=== PATIENT | male | born 1940 | race Caucasian/White ===

== ENCOUNTER 2016-07-02 10:29 | Emergency (ER) | payer MEDICARE, OTHER | END 2016-07-02 13:30 | disposition home or self-care (01) | LOC: D.ER 10:29 | DX: G62.9 Polyneuropathy, unspecified (principal); M48.32 Traumatic spondylopathy, cervical region ==

== ENCOUNTER 2016-12-03 10:59 | Emergency (ER) | payer MEDICARE, OTHER ==
[2016-12-03 11:45] LABS: BASOPHILS 0.3 % (0-2); EOSINOPHILS 2.3 % (0-7); HEMATOCRIT 37.3 % (42.0-54.0); HEMOGLOBIN 12.2 g/dL (13.5-17.5); IMMATURE GRANULOCYTES 0.2 % (0-5); LYMPHOCYTES 19.3 % (15-50); MCH 31.5 pg (26.0-34.0); MCHC 32.7 g/dL (31.0-37.0); MCV 96.4 fL (80.0-100.0); MEAN PLATELET VOLUME 9.9 fL (7.4-10.4); MONOCYTES 9.4 % (2-11); NEUTROPHILS 68.5 % (40-80); PLATELET COUNT 186 10x3/uL (130-400); RBC 3.87 10x6/uL (4.20-6.10); RDW 12.8 % (11.5-14.5); WBC 9.1 10x3/uL (4.8-10.8)
[2016-12-03 11:54] LABS: ALBUMIN 3.5 g/dL (3.4-5.0); ANION GAP 12.5 mmol/L (8-16); BILIRUBIN - TOTAL 0.27 mg/dL (0.2-1.3); CALCIUM 8.6 mg/dL (8.5-10.1); CARBON DIOXIDE 27.4 mmol/L (21.0-32.0); CREATININE - SERUM 1.4 mg/dL (0.6-1.3); POTASSIUM - SERUM 3.9 mmol/L (3.5-5.1); PROTEIN - SERUM 6.7 g/dL (6.4-8.2)
== END 2016-12-03 18:49 | disposition home or self-care (01) ==
LOC: D.ER 10:59
PROVIDERS: Family Medicine
DX: E16.2 Hypoglycemia, unspecified (principal); E11.9 Type 2 diabetes mellitus without complications; Z79.4 Long term (current) use of insulin; I10 Essential (primary) hypertension; M25.552 Pain in left hip; M25.551 Pain in right hip